=== PATIENT | male | born 1955 | race Caucasian/White ===

== ENCOUNTER 2017-01-06 18:19 | Emergency (ER) | payer OTHER ==
[~2017-01-06] VITALS: Ht 170.2 cm; Wt 136.1 kg
--- NOTE | ~2017-01-06 | CR117 ---
[facility] A Service of [facility] & [facility] RADIOLOGY TEXT RESULTS PATIENT: MEG KNAPP LOCATION: CFTX : 55 UNIT #: [id number] AGE: [address]: ROCAEL DUNHAM APRN SEX: M ORDER DR: [id number] [facility] [address] [place], [place] [address] [id number] E MR#: [id number] Acc #: [id number] NAME: MEG KNAPP. : 1955 SEX: M STUDY DATE/TIME: 01/06/2017 19:01 UNIT: [facility] ROOM: STUDY DESCRIPTION: CR Finger 2 View Thumb Rt Attending Physician: Rocael Dunham Aprn Ordering Physician: Lindsey Morales P.A.-C. Primary Care Physician: Sam Campbell M.D. MEDICAL IMAGING REPORT This report is preliminary unless electronic signature is present EXAM Right thumb. HISTORY Injury to the thumb, closing it in an airplane door at work. Injury happened earlier today. TECHNIQUE Three views of the thumb were obtained. FINDINGS Three views of the thumb demonstrate an oblique fracture through the distal phalanx of the thumb. The interphalangeal joint is preserved although there is moderate degenerative change at the IP joint. No terminal tuft fracture seen. No radiodense foreign bodies are noted. IMPRESSION Oblique fracture through the midshaft of the distal phalanx of the thumb. Satisfactory alignment and position. Dictated by... Akira Garcia M.D. THIS IS AN ELECTRONICALLY VERIFIED REPORT Akira Garcia M.D. at 01/08/2017 7:08 AM RICKY/allen TD: 01/07/2017 09:15 JOB #: [id number] MEDICAL IMAGING REPORT Page 1 of 1 COPY
[~2017-01-06 18:19] MED LIST: CRESTOR PO; DIOVAN HCT 160-1 TAB PO; FUROSEMIDE40 MG PO; GLUCOPHAGE500 M1 PO; GRALISE1 EACH; KLOR-CON PO; LIPITOR PO; ONGLYZA5 MG PO
== END 2017-01-06 22:00 | disposition other institution (70) ==
LOC: CED 18:19 → CFTX 18:19
DX: S67.02XA Crushing injury of left thumb, initial encounter (principal); S62.522A Displaced fracture of distal phalanx of left thumb, initial encounter for closed fracture; I10 Essential (primary) hypertension; E11.9 Type 2 diabetes mellitus without complications; E78.5 Hyperlipidemia, unspecified; Z23 Encounter for immunization; W23.0XXA Caught, crushed, jammed, or pinched between moving objects, initial encounter
CPT/HCPCS: 73140; 90471; 90715; 99284